=== PATIENT | male | born 1985 | race Caucasian/White ===

== ENCOUNTER 2016-09-16 09:27 | Emergency (ER) | payer OTHER ==
[~2016-09-16] VITALS: Ht 175.3 cm; Wt 84.4 kg
[~2016-09-16 09:27] MED LIST: VICODIN5-300 PO
[2016-09-16 09:30] VITALS: BP 137/87
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
[2016-09-16] MEDS ORDERED: MOBIC15 M1 PO (12:29)
== END 2016-09-16 12:34 ==
LOC: ERH 09:27
DX: S39.012A Strain of muscle, fascia and tendon of lower back, initial encounter (principal)